=== PATIENT | male | born 2000 | race Caucasian/White ===

== ENCOUNTER 2021-06-22 05:58 | Day surgery (SDC) | payer BC ==
[2021-06-22] MEDS: Nozin Nasal Sanitizer NASBOTH ONE (06:46)
[2021-06-22] MEDS: Lactated Ringers 1,000 ML IV SCH (06:48)
[2021-06-22] MEDS ORDERED: cefOXitin 2 GM in Sodium Chloride 0.9% 100 ML IV ONE (07:00)
[2021-06-22] MEDS ORDERED: fentaNYL 100 MCG/2 ML SDV ONE (07:23)
[2021-06-22] MEDS ORDERED: Midazolam 1 MG/ML 2 ML SDV ONE (07:23)
[2021-06-22] MEDS ORDERED: Propofol 200 MG/20 ML SDV ONE (07:23)
[2021-06-22] MEDS ORDERED: Bupivacaine 0.5% 30 ML SDV ONE (07:46)
[2021-06-22] MEDS: ceFAZolin 2 GM in Premix Bag 1 BAG IV ONE (07:48)
[2021-06-22] MEDS ORDERED: fentaNYL 250 MCG/5 ML SDV ONE (08:10)
[2021-06-22] MEDS ORDERED: Acetaminophen/oxyCODONE 325-5 MG Tab PO PRN (12:45)
[2021-06-22] MEDS: Bupivacaine 0.5% 30 ML SDV ONE (13:03)
[2021-06-22] MEDS: Acetaminophen/oxyCODONE 325-5 MG Tab PO ONE (13:11)
[2021-06-22 13:34] VITALS: BP 133/76; PULSE 77
[2021-06-23] MEDS ORDERED: ceFAZolin 2 GM in Premix Bag 1 BAG IV ONE (07:00)
== END 2021-06-22 13:43 | disposition home or self-care (01) ==
LOC: JP.SDS 05:58
PROVIDERS: ATTEND Specialist
DX: M89.212 Other disorders of bone development and growth, left shoulder (principal); Z87.891 Personal history of nicotine dependence
CPT/HCPCS: 36415; 85027; A9270-GY; J0690; J2250; J2704; J3010; J3490; J7120

== ENCOUNTER 2022-02-08 06:02 | Day surgery (SDC) | payer BC ==
[2022-02-08 06:46] LABS: ESTIMATED GFR 97 mL/min (>60)
[2022-02-08] MEDS ORDERED: Bupivacaine 0.5% 30 ML SDV ONE (06:51)
[2022-02-08] MEDS ORDERED: Lactated Ringers 1,000 ML IV SCH (07:00)
[2022-02-08] MEDS ORDERED: Nozin Nasal Sanitizer NASBOTH ONE (07:00)
[2022-02-08] MEDS ORDERED: Propofol 200 MG/20 ML SDV ONE (07:07)
[2022-02-08] MEDS ORDERED: fentaNYL 100 MCG/2 ML SDV ONE ×2 (07:08→08:00)
[2022-02-08] MEDS ORDERED: Midazolam 1 MG/ML 2 ML SDV ONE (07:08)
[2022-02-08] MEDS ORDERED: ceFAZolin 1 GM in Premix Bag 1 BAG IV ONE (07:15)
[2022-02-08] MEDS ORDERED: ceFAZolin 1 GM in Sodium Chloride 0.9% 50 ML IV ONE (07:15)
[2022-02-08] MEDS ORDERED: Dexamethasone 4 MG/ML SDV ONE (07:58)
[2022-02-08] MEDS ORDERED: Ondansetron 4 MG/2 ML SDV ONE (07:58)
[2022-02-08 10:18] VITALS: BP 101/68; PULSE 64
[2022-02-08] MEDS ORDERED: Acetaminophen/HYDROcodone 325-5 MG Tab PO ONE (10:30)
== END 2022-02-08 10:20 | disposition home or self-care (01) ==
LOC: JP.SDS 06:02
PROVIDERS: ATTEND Specialist
DX: T84.84XA Pain due to internal orthopedic prosthetic devices, implants and grafts, initial encounter (principal); Z79.899 Other long term (current) drug therapy; Z20.822 Contact with and (suspected) exposure to COVID-19
CPT/HCPCS: 20680; 36415; 80053; 85027; 87635; A9270; J0690; J1100; J2250; J2405; J2704; J3010; J3490; J7120; U0002